=== PATIENT | male | born 1980 | race African-American/Black ===

== ENCOUNTER 2019-07-08 19:45 | Emergency (ER) | payer SELFPAY ==
[~2019-07-08] VITALS: Ht 193 cm; Wt 90.7 kg
[2019-07-08 19:53] VITALS: BP_SYST 141
--- NOTE | 2019-07-08 19:58 | NUR ---
Patient to ER bed 07 to gown for evaluation. Side rails up.
--- NOTE | 2019-07-08 20:00 | NUR ---
ER at bedside examining patient.
--- NOTE | 2019-07-08 20:00 | NUR ---
patient arrived AO4 from home with c/o diffused rash to the lower arms since 3 days. patient denies reason for rash. patient states this has never happen before. rash is warm to the touch. patient denies putting anything on it for treatment. patient did not see a primary care doctor for treatment. no other complaint or injury at this time.
[2019-07-08] MEDS ORDERED: PREDNISONE 10 MG TABLET PO ONE (20:15)
[2019-07-08] MEDS ORDERED: PREDNISONE 20 MG TABLET PO ONE (20:15)
[2019-07-08 20:30] VITALS: BP_SYST 140
--- NOTE | 2019-07-08 20:30 | NUR ---
Patient given written and verbal discharge instructions and verbalizes understanding. ER MD discussed with patient the results and treatment provided. Patient in stable condition. ID arm band removed. Rx of Prednisone, Benadryl given. Patient educated on pain management and to follow up with PMD. Pain Scale 0/10. Opportunity for questions provided and answered. Medication side effect fact sheet provided.
== END 2019-07-08 20:30 | disposition home or self-care (01) ==
LOC: SED 19:45
DX: L50.0 Allergic urticaria (principal); F12.90 Cannabis use, unspecified, uncomplicated; R03.0 Elevated blood-pressure reading, without diagnosis of hypertension
CPT/HCPCS: 99283; J7512 ×2